=== PATIENT | female | born 1995 | race Hispanic/Latino ===

== ENCOUNTER 2018-10-18 14:56 | Emergency (ER) | payer OTHER ==
[2018-10-18] MEDS ORDERED: KETOROLAC TROMETHAMINE 60 MG/2 ML VIAL ONE (15:33)
== END 2018-10-18 15:38 | disposition home or self-care (01) ==
LOC: EDH 14:56
DX: S80.12XA Contusion of left lower leg, initial encounter (principal); Z72.0 Tobacco use; W23.0XXA Caught, crushed, jammed, or pinched between moving objects, initial encounter; Y93.89 Activity, other specified; Y92.89 Other specified places as the place of occurrence of the external cause; Y99.8 Other external cause status
CPT/HCPCS: 73590; 81025; 96372; 99284; J1885